=== PATIENT | female | born 1960 | race Hispanic/Latino ===

== ENCOUNTER 2021-06-18 14:32 | Emergency (ER) | payer SELFPAY ==
--- NOTE | 2021-06-18 14:49 | Emergency Department Report ---
HPI - General Time Seen by Provider: 06/18/21 14:44 - HPI HPI: Room 1 The patient is a 61-year-old female present with a chief complaint of cardiac arrest. Per EMS the patient had a cardiac valve replacement at [facility] last week. EMS reports that the patient was in the car being driven home from the hospital when she began to complain of "not feeling right." The patient then went unresponsive and EMS was called. First engine arrived on scene at 13: 51 to find the patient in asystole. ACLS protocols were initiated. The patient is intubated with an ET tube and administered 3 rounds of epi and 1 amp of sodium bicarb prior to arrival. EMS reports upon arrival to the ED the patient's rhythm went from asystole to PEA. In the ED ACLS protocols were continued but there was no return of spontaneous circulation ED Past Medical Hx - Past Medical History Hx Hypertension: Yes Hx Diabetes: Yes - Surgical History Hx Open Heart Surgery: Yes (Valve replacement) - Family History Family history: no significant - Social History Smoking Status: Unknown if ever smoked ED Review of Systems ROS: Stated complaint: CARDIAC ARREST Other details as noted in HPI Comment: Unobtainable due to pts medical conditions Physical Exam - Physical Exam Physical Exam: GENERAL: The patient is well-developed well-nourished female lying on stretcher being bagged via ET tube and receiving chest compressions from EMS. [] HEENT: Normocephalic. Atraumatic. NECK: Supple. CHEST/LUNGS: Agonal respirations. Breath sounds equal bilaterally with bagging. HEART/CARDIOVASCULAR: No heart sounds. Asystole on the monitor ABDOMEN: Abdomen is soft, nontender. Patient has normal bowel sounds. There is no abdominal distention. SKIN: There is a recent surgical scar on the chest NEURO: GCS 3 T MUSCULOSKELETAL: There is no evidence of acute injury. ED Medical Decision Making - Differential Diagnosis Cardiac arrest Critical care attestation.: If time is entered above; I have spent that time in minutes in the direct care of this critically ill patient, excluding procedure time. ED Disposition Clinical Impression: Cardiac arrest Disposition: 20 Is pt being admited?: No Does the pt Need Aspirin: No Condition: Poor Time of Disposition: 14:45 (Patient )
== END 2021-06-18 18:18 ==
LOC: ED 14:32
DX: I46.9 Cardiac arrest, cause unspecified (principal); I10 Essential (primary) hypertension; E11.9 Type 2 diabetes mellitus without complications
CPT/HCPCS: 92950; 99285